=== PATIENT | female | born 1975 | race Caucasian/White ===

== ENCOUNTER 2018-02-14 15:00 | Emergency (ER) | payer OTHER ==
[~2018-02-14] VITALS: Ht 167.6 cm; Wt 68.0 kg
[~2018-02-14 15:00] MED LIST: TEGRETOL XR200 MG PO
[2018-02-14 15:18] LABS: URINE BILIRUBIN NEGATIVE (Negative); URINE BLOOD NEGATIVE (Negative); URINE CLARITY CLEAR; URINE COLOR YELLOW; URINE GLUCOSE-RANDOM* NEGATIVE (Negative); URINE KETONES NEGATIVE (Negative); URINE LEUKOCYTES-REFLEX NEGATIVE (Negative); URINE NITRITE-REFLEX NEGATIVE (Negative); URINE PROTEIN (DIPSTICK) NEGATIVE (Negative); URINE SPECIFIC GRAVITY <= 1.005 (1.005-1.035); URINE UROBILINOGEN 0.2 E.U./dl (0.2-1.0)
[2018-02-14] MEDS ORDERED: GEODON80 MG PO (15:21)
[2018-02-14] MEDS ORDERED: TOPAMAX 100 MG100 MG PO (15:21)
[2018-02-14] MEDS ORDERED: ZOLOFT50 MG PO (15:22)
[2018-02-14 16:12] VITALS: BP 128/84
== END 2018-02-14 16:14 | disposition home or self-care (01) ==
LOC: ER 15:00
PROVIDERS: Student in an Organized Health Care Education/Training Program
DX: R35.0 Frequency of micturition (principal); F17.210 Nicotine dependence, cigarettes, uncomplicated; M54.5 Low back pain

== ENCOUNTER 2020-04-08 01:04 | Emergency (ER) | payer OTHER ==
[~2020-04-08] VITALS: Ht 172.7 cm; Wt 90.7 kg
[~2020-04-08 01:04] MED LIST changes: +GEODON80 MG PO; +TOPAMAX 100 MG100 MG PO; +ZOLOFT50 MG PO
[2020-04-08 01:05] VITALS: BP 93/54
[2020-04-08] MEDS ORDERED: HYDROXYZINE HCL50 MG PO (01:12)
[2020-04-08] MEDS ORDERED: DESYREL150 MG PO (01:12)
[2020-04-08] MEDS ORDERED: SERTRALINE HCL100 MG PO (01:14)
[2020-04-08 02:31] LABS: ANION GAP 15 mmol/L (7-16); BASOPHILS 0.5 % (0.0-2.0); BUN 11 mg/dL (7-18); CALCIUM 7.8 mg/dL (8.5-10.1); CHLORIDE 107 mmol/L (98-107); CO2 19 mmol/L (21-32); EOSINOPHILS 0.5 % (0.0-3.0); GLUCOSE 144 mg/dL (74-106); HEMATOCRIT 34.9 % (37.0-47.0); HEMOGLOBIN 11.4 gm/dL (12.0-15.0); LYMPHOCYTES 4.9 % (24.0-44.0); MCH 31.3 pg (26.0-34.0); MCHC 32.7 g/dL (28.0-37.0); MCV 95.6 fL (80.0-100.0); MONOCYTES 4.1 % (1.0-8.0); PLATELET COUNT 233 thou/uL (150-400); POTASSIUM 3.2 mmol/L (3.5-5.1); RBC 3.65 mil/uL (4.20-5.00); RDW 12.8 % (10.5-14.5); SODIUM 141 mmol/L (136-145)
[2020-04-08 02:34] LABS: URINE BILIRUBIN NEGATIVE (Negative); URINE BLOOD NEGATIVE (Negative); URINE CLARITY CLEAR; URINE COLOR YELLOW; URINE GLUCOSE-RANDOM* NEGATIVE (Negative); URINE KETONES NEGATIVE (Negative); URINE LEUKOCYTES-REFLEX NEGATIVE (Negative); URINE NITRITE-REFLEX NEGATIVE (Negative); URINE PROTEIN (DIPSTICK) NEGATIVE (Negative); URINE UROBILINOGEN 0.2 E.U./dl (0.2-1.0)
[2020-04-08 02:47] LABS: ALBUMIN 3.6 g/dL (3.4-5.0); DIRECT BILIRUBIN < 0.1 mg/dL (<0.1-0.2); SGOT 19 U/L (15-37); SGPT 11 U/L (30-65); TOTAL BILIRUBIN 0.2 mg/dL (0.2-1.0); TOTAL PROTEIN 6.9 g/dL (6.4-8.2)
[2020-04-08 02:48] LABS: AMP/METHAMP Negative (Negative); BARBITURATES Negative (Negative); BENZODIAZEPINES POSITIVE (Negative); COCAINE Negative (Negative); METHADONE Negative (Negative); OPIATES Negative (Negative); PCP Negative (Negative)
[2020-04-08] MEDS ORDERED: TOPAMAX100 MG PO (08:18)
[2020-04-08 10:08] VITALS: BP 100/56
--- NOTE | 2020-04-08 15:58 | EKG ---
[facility] [place] [address] ELECTROCARDIOGRAM REPORT Name: FRANK FLANNERY Room #: DEP [facility]#: [id number] Admission: 04/08/20 Attend Phys: Discharge: 04/08/20 Date of : 75 Report #: [id number] THIS REPORT FOR: cc: Antonio Patel Steven F. DO Santiago, Patrick MD [facility] ~ THIS REPORT FOR: //name// [facility] ED Test Date: 2020-04-08 Test Time: 01:19:39 Pat Name: FRANK FLANNERY Department: Room: [facility] Gender: F Boat Operator: : 1975 Requested By: Chandana Machuca Order Number: [id number] : José Miguel White Measurements Intervals [place] Rate: 96 P: 62 OR: 124 QRS: 53 QRSD: 100 T: 53 QT: 359 QTc: 454 Interpretive Statements Sinus rhythm No previous ECG available for comparison Electronically Signed On 04-08-2020 15:58:41 CDT by José Miguel White [email or web address] <ELECTRONICALLY SIGNED> By: José Miguel White MD, FACC 04/08/20 1558 0119 8 José Miguel White MD, FACC /EPI
== END 2020-04-08 10:08 | disposition home or self-care (01) ==
LOC: ER 01:04 → EROBS 05:39 → ER 05:39 → EROBS 10:08 → ER 10:08
PROVIDERS: Emergency Medicine; Internal Medicine
DX: R56.9 Unspecified convulsions (principal); R41.82 Altered mental status, unspecified; F17.210 Nicotine dependence, cigarettes, uncomplicated

== ENCOUNTER 2020-05-29 18:26 | Emergency (ER) | payer OTHER ==
[~2020-05-29] VITALS: Ht 170.2 cm; Wt 72.6 kg
--- NOTE | ~2020-05-29 | EMS ---
[address] [address] EMS Patient Care Report Name: FRANK FLANNERY Room #: PRE M.R.#: [id number] Admission: Attend Phys: Discharge: Date of : 75 Report #: [id number] THIS REPORT FOR: //name// Report Transmitted: 05/29/2020 18:14 EMS Care Summary [place], [place]/[facility] Incident [id number] @ 05/29/2020 17:50 Incident Location [address] [place] [address] Patient FRANK FLANNERY Female, 44 Years 1975 Patient Address [address] [place] [address] Patient History Seizures,Bipolar II Disorder,Anxiety,Alcohol Abuse, Patient Allergies No known allergies, Patient Medications Geodon, Chief Complaint unresponsive, possible seizure Disposition Transported [place] Reason Convulsions/Seizure Transported To [facility] Narrative S: 44 yo female was found unresponsive by family. She last spoke to someone 1.5 hours ago. The pt has a seizure history. Upon our arrival the pt was laying in bed unresponsive. The pt was diaphoretic and hot to the touch with shallow respirations. Her initial oxygen levels were in the 60's, but came up quickly [address] [address] EMS Patient Care Report Name: FRANK FLANNERY Room #: PRE [facility]..#: [id number] Admission: Attend Phys: Discharge: Date of : 75 Report #: [id number] with oxygen. The pt has had a recent cough, but had a negative covid test 2 days ago. The family denies any other recent illnesses. Her last seizure was 1.5 months ago. The pt is an avid drinker. O: gcs- 3 improved to 6 upon ED arrival. The pts eyes were open, but she was not tracking at all. Her pupils were unreactive. shallow resp noted, BS- clear throughout. ECG-ST. While on scene the pt had some shaking to her feet. I went ahead a gave Versed for possible seizure. + diaphoretic. no obvious trauma noted. A: possible seizure, unresponsive P: VS, oxygen, BG, saline lock, Versed given without changes. Just before arrival at the ER the pt had some painful response when I started the second IV. Pt transported to [facility] without any other changes. [address] #[id number] Initial Vitals @18:14P: 107,BP: 105/65,SpO2: 98, @18:05P: 101,CO: 4,SpO2: 81, @18:02P: 93,R: 12,BP: 167/77,Pain: 0/10,GCS: 3,Glucose: 132,SpO2: 68,Revised Trauma: 8, @18:16P: 108,R: 16,BP: 100/65,Pain: 0/10,GCS: 3,Temp: 99.1F,CO: 3,SpO2: 97,Revised Trauma: 8, @18:11P: 112,R: 12,BP: 114/72,Pain: 0/10,GCS: 3,CO: 2,SpO2: 98,Revised Trauma: 8, @18:00P: 38,SpO2: 56, @18:18P: 103,R: 12,BP: 103/66,Pain: 0/10,GCS: 6,CO: 4,SpO2: 96,Revised Trauma: 10, Assessments @18:00MENTAL:Unresponsive,SKIN:Diaphoresis,Hot,HEENT:Eyes: Right: Non-Reactive,Eyes: Left: Non-Reactive,Head/Face: No Abnormalities,Neck/Airway: No Abnormalities,LUNG SOUNDS:General: No Abnormalities,ABDOMEN:General: No Abnormalities,PELVIS//GI:No Abnormalities,EXTREMITIES:Left Arm: No Abnormalities,Right Arm: No Abnormalities,Left Leg: No Abnormalities,Right Leg: No Abnormalities,PULSE:NEURO:Seizures,@18:20MENTAL:Unresponsive,SKIN:Hot,HEENT:Eyes : Right: Non-Reactive,Eyes: Left: Non-Reactive,Head/Face: No Abnormalities,Neck/Airway: No Abnormalities,LUNG SOUNDS:General: No Abnormalities,ABDOMEN:General: No Abnormalities,PELVIS//GI:EXTREMITIES:PULSE:NEURO:Seizures, Impression Seizures Procedures [facility] [address] [place] [address] EMS Patient Care Report Name: FRANK FLANNERY [id number] Admission: Attend Phys: Discharge: Date of : 75 Report #: [id number] @18:00ALS AssessmentResponse: UnchangedSucceeded@18:013-Lead ECGResponse: UnchangedSucceeded@18:05Saline Lock 30cc (20 ga) Site: Hand-RightResponse: UnchangedSucceeded@18:20Saline Lock 10cc (18 ga) Site: Antecubital-LeftResponse: UnchangedSucceeded@18:02Oxygen FlowRate: 15 Device: Non Re-breather Mask (NRB) Response: ImprovedSucceeded@18:06Midazolam - 2.5 Milligrams (mg) - Intravenous (IV)Response: Unchanged Timeline 17:49,Call Received 17:49,Dispatch Notified 17:50,Dispatched 17:51,En Route 17:57,On Scene 17:59,At Patient 18:00,ALS Assessment,Response: UnchangedSucceeded, 18:00,BP: / M,PULSE: 38,RR: R,SPO2: 56 Ox,ETCO2: ,BG: ,PAIN: ,GCS: , 18:01,3-Lead ECG,Response: UnchangedSucceeded, 18:02,Oxygen FlowRate: 15 Device: Non Re-breather Mask (NRB) Response: ImprovedSucceeded, 18:02,BP: 167/77 M,PULSE: 93,RR: 12 R,SPO2: 68 Ox,ETCO2: ,B,PAIN: 0,GCS: 3, 18:05,Saline Lock 30cc 20 ga Site: Hand-Right,Response: UnchangedSucceeded, 18:05,BP: / M,PULSE: 101,RR: R,SPO2: 81 Ox,ETCO2: ,BG: ,PAIN: ,GCS: , 18:06,Midazolam - 2.5 Milligrams (mg) - Intravenous (IV),Response: Unchanged 18:11,BP: 114/72 M,PULSE: 112,RR: 12 R,SPO2: 98 Ox,ETCO2: ,BG: ,PAIN: 0,GCS: 3, 18:12,Depart Scene 18:14,BP: 105/65 M,PULSE: 107,RR: R,SPO2: 98 Ox,ETCO2: ,BG: ,PAIN: ,GCS: , 18:16,BP: 100/65 M,PULSE: 108,RR: 16 R,SPO2: 97 Ox,ETCO2: ,BG: ,PAIN: 0,GCS: 3, 18:18,BP: 103/66 M,PULSE: 103,RR: 12 R,SPO2: 96 Ox,ETCO2: ,BG: ,PAIN: 0,GCS: 6, 18:20,Saline Lock 10cc 18 ga Site: Antecubital-Left,Response: UnchangedSucceeded, 18:21,At Destination 18:57,Call Closed Disclaimer v1.1 Copyright 2020 [employer] This EMS Care Summary contains data elements from the applicable legal record (which may be displayed differently). It is designed to provide pertinent information for the following purposes: continuity of care, clinical quality, and state data reporting. The complete legal record is available to ED staff and administrators of the receiving hospital in [employer] Patient Tracker. All data is provided "as is."
[~2020-05-29 18:26] MED LIST changes: +DESYREL150 MG PO; +HYDROXYZINE HCL50 MG PO; +SERTRALINE HCL100 MG PO; +TOPAMAX100 MG PO
[2020-05-29 18:41] LABS: ABSOLUTE NEUTROPHILS 5.3 thou/uL (1.4-8.2); BASOPHILS 0.7 % (0.0-2.0); EOSINOPHILS 1.5 % (0.0-3.0); HEMATOCRIT 40.2 % (37.0-47.0); HEMOGLOBIN 13.4 gm/dL (12.0-15.0); LYMPHOCYTES 17.4 % (24.0-44.0); MCH 31.9 pg (26.0-34.0); MCHC 33.5 g/dL (28.0-37.0); MCV 95.2 fL (80.0-100.0); PLATELET COUNT 269 thou/uL (150-400); POLYS 72.4 % (36.0-66.0); RBC 4.22 mil/uL (4.20-5.00); RDW 13.5 % (10.5-14.5); WBC 7.4 thou/uL (4.0-11.0)
[2020-05-29 18:48] LABS: URINE BILIRUBIN NEGATIVE (Negative); URINE BLOOD 3+ (Negative); URINE CLARITY CLEAR; URINE COLOR YELLOW; URINE GLUCOSE-RANDOM* NEGATIVE (Negative); URINE KETONES NEGATIVE (Negative); URINE LEUKOCYTES-REFLEX NEGATIVE (Negative); URINE NITRITE-REFLEX NEGATIVE (Negative); URINE PROTEIN (DIPSTICK) 2+ (Negative); URINE SPECIFIC GRAVITY >= 1.030 (1.005-1.035)
[2020-05-29 18:57] LABS: AMP/METHAMP Negative (Negative); BARBITURATES Negative (Negative); BENZODIAZEPINES POSITIVE (Negative); COCAINE Negative (Negative); METHADONE Negative (Negative); OPIATES Negative (Negative); PCP Negative (Negative)
[2020-05-29 18:59] LABS: CRYSTALS None Seen /LPF (None Seen); HYALINE CASTS 0-3 Few /LPF (None Seen); SQUAMOUS 0-3 Few /LPF (0-3)
[2020-05-29 19:00] LABS: BACTERIA-REFLEX 1-9 Few /HPF (None Seen); URINE WBC-REFLEX None Seen /HPF (0-5)
[2020-05-29 19:19] LABS: ANION GAP 13 mmol/L (7-16); BUN 11 mg/dL (7-18); CALCIUM 8.8 mg/dL (8.5-10.1); CHLORIDE 105 mmol/L (98-107); CO2 21 mmol/L (21-32); CREATININE 1.3 mg/dL (0.6-1.0); GLUCOSE 118 mg/dL (74-106); POTASSIUM 4.2 mmol/L (3.5-5.1); SODIUM 139 mmol/L (136-145)
[2020-05-29 19:29] LABS: ALBUMIN 4.3 g/dL (3.4-5.0); MAGNESIUM 2.1 mg/dL (1.8-2.4); SGOT 19 U/L (15-37); SGPT 13 U/L (30-65); TOTAL BILIRUBIN 0.3 mg/dL (0.2-1.0); TOTAL PROTEIN 8.1 g/dL (6.4-8.2); TROPONIN-I <0.06 ng/mL (<0.06)
[2020-05-29 20:13] VITALS: BP 99/63
--- NOTE | 2020-06-01 07:29 | EKG ---
[facility] [place] [address] ELECTROCARDIOGRAM REPORT Name: FRANK FLANNERY Room #: [facility]#: [id number] Admission: 05/29/20 Attend Phys: Discharge: 05/29/20 Date of : 75 Report #: [id number] THIS REPORT FOR: cc: Antonio Patel Steven F. DO Santiago, Patrick MD [facility] THIS REPORT FOR: //name// [facility] ED Test Date: 2020-05-29 Test Time: 18:29:22 Pat Name: FRANK FLANNERY Department: Room: Gender: Account Support Manager: : 1975 Requested By: Patrice Ridley Order Number: [id number] : José Miguel White Measurements Intervals [place] Rate: 106 P: 67 MN: 163 QRS: 80 QRSD: 85 T: 58 QT: 341 QTc: 453 Interpretive Statements Sinus tachycardia Compared to ECG 04/08/2020 01:19:39 Sinus rhythm no longer present Electronically Signed On 06-01-2020 7:29:17 [employer] by José Miguel White [email or web address] <ELECTRONICALLY SIGNED> By: José Miguel White MD, FACC 06/01/20 0729 182 28 José Miguel White MD, [facility] /EPI
== END 2020-05-29 20:14 | disposition home or self-care (01) ==
LOC: ER 18:26
PROVIDERS: Emergency Medicine
DX: G40.909 Epilepsy, unspecified, not intractable, without status epilepticus (principal); F17.210 Nicotine dependence, cigarettes, uncomplicated; Z79.899 Other long term (current) drug therapy

== ENCOUNTER 2020-10-26 15:15 | Emergency (ER) | payer OTHER ==
[~2020-10-26] VITALS: Ht 167.6 cm; Wt 60.8 kg
--- NOTE | ~2020-10-26 | EMS ---
[address] [address] EMS Patient Care Report Name: FRANK FLANNERY Room #: REG [place]#: [id number] Admission: 10/26/20 Attend Phys: Discharge: Date of : 75 Report #: [id number] THIS REPORT FOR: //name// Report Transmitted: 10/26/2020 16:07 EMS Care Summary [place], [place]/[facility] Incident [id number] @ 10/26/2020 14:43 Incident Location [address] [place] [address] Patient FRANK FLANNERY Female, 44 Years 1975 Patient Address [address] [place] [address] Patient History Bipolar II Disorder,Depression,Anxiety,Alcohol Abuse, Patient Allergies No known allergies, Patient Medications Xanax, Geodon, Trazodone, Zoloft, Chief Complaint Intentional OD of Trazodone and Geondon Disposition Transported [place] Lights/[place] Reason Overdose/Poisoning/Ingestion Transported To [facility] Narrative M528, P45 responded immediately to the scene of an Overdose. P45 arrived first on scene with PD. Upon arrival, pt found ADAIR and sitting in kitchen chair. Pt admits to taking [address] [address] EMS Patient Care Report Name: FRANK FLANNERY Room #: REG Jose#: [id number] Admission: 10/26/20 Attend Phys: Discharge: Date of : 75 Report #: [id number] Trazodone and 5 Geodon about 45 mins ago as well as ETOH. She admits she took these meds in an attempt to harm herself, but denies any HI. Agreeable to transport to [facility]. Escorted pt out to ambulance and secured on cot. Primary ALS assessment performed. Vitals established. D-stick acquired. Transport to then initiated. Contacted with a 5-6 minute ETA, and report given. During transport, pt remains stable. 20g saline lock secured. Arrived at and pt to ER 06. Report to RN then care released. Initial Vitals @14:57P: 120,R: 15,BP: 136/77,GCS: 15,Glucose: 90,SpO2: 98,Revised Trauma: 12, @15:01P: 112,R: 16,BP: 124/76,Pain: 0/10,GCS: 15,SpO2: 98,Revised Trauma: 12, Assessments @14:56MENTAL:Person Oriented,Time Oriented,Place Oriented,Event Oriented,SKIN:HEENT:LUNG SOUNDS:ABDOMEN:PELVIS//GI:EXTREMITIES:PULSE:Radial: 2+ Normal,NEURO:No Abnormalities, Impression Suicidal Ideation Procedures @14:56ALS AssessmentResponse: UnchangedSucceeded@15:04Saline Lock 5cc (20 ga) Site: Antecubital-LeftResponse: UnchangedSucceeded Timeline 14:42,Call Received 14:42,Dispatch Notified 14:43,Dispatched 14:44,En Route 14:52,On Scene 14:53,At Patient 14:56,ALS Assessment,Response: UnchangedSucceeded, 14:57,BP: 136/77 M,PULSE: 120,RR: 15 R,SPO2: 98 Ox,ETCO2: ,B,PAIN: ,GCS: 15, 15:01,BP: 124/76 M,PULSE: 112,RR: 16 R,SPO2: 98 Ox,ETCO2: ,BG: ,PAIN: 0,GCS: 15, 15:01,Depart Scene 15:04,Saline Lock 5cc 20 ga Site: Antecubital-Left,Response: UnchangedSucceeded, 15:12,At Destination 15:29,Call Closed Disclaimer [address] [address] EMS Patient Care Report Name: FRANK FLANNERY Room #: REG [facility].#: [id number] Admission: 10/26/20 Attend Phys: Discharge: Date of : 75 Report #: [id number] v1.1 Copyright 2020 [employer] This EMS Care Summary contains data elements from the applicable legal record (which may be displayed differently). It is designed to provide pertinent information for the following purposes: continuity of care, clinical quality, and state data reporting. The complete legal record is available to ED staff and administrators of the receiving hospital in [employer]'s Patient Tracker. All data is provided "as is."
[2020-10-26 16:01] LABS: ABSOLUTE NEUTROPHILS 3.9 thou/uL (1.4-8.2); BASOPHILS 0.5 % (0.0-2.0); EOSINOPHILS 1.5 % (0.0-3.0); HEMATOCRIT 36.9 % (37.0-47.0); HEMOGLOBIN 12.5 gm/dL (12.0-15.0); LYMPHOCYTES 14.7 % (24.0-44.0); MCHC 33.9 g/dL (28.0-37.0); MCV 94.3 fL (80.0-100.0); MONOCYTES 10.1 % (1.0-8.0); PLATELET COUNT 190 thou/uL (150-400); POLYS 73.2 % (36.0-66.0); RBC 3.91 mil/uL (4.20-5.00); RDW 13.3 % (10.5-14.5); WBC 5.3 thou/uL (4.0-11.0)
[2020-10-26 16:05] LABS: ANION GAP 10 mmol/L (7-16); BUN 7 mg/dL (7-18); CALCIUM 8.1 mg/dL (8.5-10.1); CHLORIDE 105 mmol/L (98-107); CO2 20 mmol/L (21-32); CREATININE 0.9 mg/dL (0.6-1.0); GLUCOSE 112 mg/dL (74-106); POTASSIUM 3.1 mmol/L (3.5-5.1); SODIUM 135 mmol/L (136-145)
[2020-10-26 16:08] LABS: URINE BILIRUBIN NEGATIVE (Negative); URINE BLOOD NEGATIVE (Negative); URINE CLARITY CLEAR; URINE COLOR YELLOW; URINE GLUCOSE-RANDOM* NEGATIVE (Negative); URINE KETONES NEGATIVE (Negative); URINE LEUKOCYTES-REFLEX NEGATIVE (Negative); URINE NITRITE-REFLEX NEGATIVE (Negative); URINE PROTEIN (DIPSTICK) NEGATIVE (Negative); URINE SPECIFIC GRAVITY <= 1.005 (1.005-1.035); URINE UROBILINOGEN 0.2 E.U./dl (0.2-1.0)
[2020-10-26 16:12] LABS: ALBUMIN 3.7 g/dL (3.4-5.0); LIPASE 150 U/L (73-393); SALICYLATE 3.5 mg/dL (2.8-20.0); SGOT 13 U/L (15-37); SGPT 13 U/L (14-59); TOTAL BILIRUBIN 0.2 mg/dL (0.2-1.0); TOTAL PROTEIN 6.9 g/dL (6.4-8.2)
[2020-10-26 16:24] LABS: AMP/METHAMP Negative (Negative); BARBITURATES Negative (Negative); BENZODIAZEPINES Negative (Negative); COCAINE Negative (Negative); METHADONE Negative (Negative); OPIATES Negative (Negative); PCP Negative (Negative)
[2020-10-27 02:43] VITALS: BP 95/62
--- NOTE | 2020-10-27 05:51 | EKG ---
[address] [address] [place] [address] ELECTROCARDIOGRAM REPORT Name: FRANK FLANNERY Room #: [facility]#: [id number] Admission: 10/26/20 Attend Phys: Discharge: 10/27/20 Date of : 75 Report #: [id number] [facility] ED Test Date: 2020-10-26 Test Time: 16:14:02 Pat Name: FRANK FLANNERY Department: Room: Gender: F Special Education Assistant: PATRICK : 1975 Requested By: Eric Goyal Order Number: [id number] MD: José Miguel White Measurements Intervals [place] Rate: 85 P: 92 IA: 148 QRS: 77 QRSD: 84 T: 56 QT: 404 QTc: 481 Interpretive Statements Sinus rhythm Probable left atrial enlargement Low voltage, precordial leads Baseline wander in lead(s) V1 Compared to ECG 05/29/2020 18:29:22 Low QRS voltage now present Sinus tachycardia no longer present Electronically Signed On 10-27-2020 5:50:43 CDT by José Miguel White [email or web address] <ELECTRONICALLY SIGNED> By: José Miguel White MD, [facility] 10/27/20 0550 1614 13 José Miguel White MD, [facility] /EPI
== END 2020-10-27 02:46 ==
LOC: ER 15:15
PROVIDERS: Emergency Medicine
DX: T43.592A Poisoning by other antipsychotics and neuroleptics, intentional self-harm, initial encounter (principal); Z20.822 Contact with and (suspected) exposure to COVID-19; T43.212A Poisoning by selective serotonin and norepinephrine reuptake inhibitors, intentional self-harm, initial encounter; F10.129 Alcohol abuse with intoxication, unspecified; F17.210 Nicotine dependence, cigarettes, uncomplicated; Z79.899 Other long term (current) drug therapy; Y92.89 Other specified places as the place of occurrence of the external cause; Y90.9 Presence of alcohol in blood, level not specified